=== PATIENT | male | born 1965 | race Caucasian/White ===

== ENCOUNTER 2019-08-08 15:17 | Inpatient (IN) ==
[2019-08-08] MEDS ORDERED: Isovue-370 500 ML BOTTLE IVP ONE (15:40)
[2019-08-08] MEDS ORDERED: Morphine Sulfate 2 MG/ML SYRINGE IVP ONE ×2 (15:43→17:30)
[2019-08-08] MEDS ORDERED: 0.9 % Sodium Chloride 1,000 ML IVC ONE (15:43)
[2019-08-08 16:16] LABS: Hematocrit 39.7 % (37.5-50.1); Hemoglobin 13.3 g/dL (12.9-16.9); Mean Corpuscular HGB Conc 33.5 g/dL (31.6-35.5); Mean Corpuscular Hemoglobin 29.5 pg (28.0-33.3); Mean Platelet Volume 10.5 fL (9.4-12.4); Platelet Count 211 K/mcL (140-400); Red Blood Count 4.51 M/mcL (4.19-5.50); Red Cell Distribution Width 14.1 % (11.5-14.5); White Blood Count 15.8 K/mcL (4.3-11.1)
[2019-08-08 16:35] LABS: Alanine Aminotransferase 76 Units/L (7-52); Albumin 3.4 g/dL (3.5-5.7); Albumin/Globulin Ratio 1.2 (1.1-2.2); Alkaline Phosphatase 136 Units/L (34-104); Aspartate Amino Transferase 58 Units/L (13-39); BUN/Creatinine Ratio 21 (6-26); Bilirubin,Total 1.9 mg/dL (0.3-1.0); Blood Urea Nitrogen 22 mg/dL (6-20); C-Reactive Protein > 300 mg/L (Less than 10); Calcium 9.1 mg/dL (8.6-10.3); Carbon Dioxide 21 mEq/L (23-29); Chloride 102 mEq/L (98-107); Creatine Kinase 1126 Units/L (30-223); Globulin 2.9 g/dL (2.4-3.5); Glucose 138 mg/dL (70-105); Osmolality,Calculated 286 (280-300); Potassium 3.7 mEq/L (3.5-5.1); Sodium 135 mEq/L (136-145); Total Protein 6.3 g/dL (6.4-8.9); eGFR For African Americans > 60 (> 60); eGFR For Non-African Americans > 60 (> 60)
[2019-08-08 16:43] LABS: Lymphocytes # 0.6 K/mcL (0.6-4.6); Monocytes # 1.9 K/mcL (0.0-1.3); Neutrophils # 13.3 K/mcL (1.6-8.9); Platelet Estimate Slight Decrease (Normal)
[2019-08-08] MEDS ORDERED: Naloxone 0.4 MG/ML INJ IVP PRN (18:02)
[2019-08-08] MEDS: 0.9 % Sodium Chloride 1,000 ML IVC SCH ×3 (18:03→23:26)
[2019-08-08] MEDS ORDERED: Piperacillin/Tazobactam 3.375 GM in 0.9 % Sodium Chloride Mini Bag 100 ML IVPB STA (18:16)
[2019-08-08] MEDS: Piperacillin/Tazobactam 3.375 GM in 0.9 % Sodium Chloride Mini Bag 100 ML IVPB SCH (23:27)
[2019-08-09 00:58] LABS: Basophils # 0.1 K/mcL (0.0-0.2); Basophils % 0.7 %; Eosinophils % 0.1 %; Hematocrit 37.2 % (37.5-50.1); Hemoglobin 12.5 g/dL (12.9-16.9); Immature Granulocytes % 0.2 % (0-4); Lymphocytes # 0.4 K/mcL (0.6-4.6); Lymphocytes % 2.2 %; Mean Corpuscular HGB Conc 33.6 g/dL (31.6-35.5); Mean Corpuscular Hemoglobin 29.7 pg (28.0-33.3); Mean Corpuscular Volume 88.4 fL (83.0-100.0); Mean Platelet Volume 10.8 fL (9.4-12.4); Monocytes # 0.8 K/mcL (0.0-1.3); Monocytes % 4.7 %; Neutrophils # 15.4 K/mcL (1.6-8.9); Platelet Count 206 K/mcL (140-400); Red Blood Count 4.21 M/mcL (4.19-5.50); Red Cell Distribution Width 14.3 % (11.5-14.5); Segmented Neutrophils % 92.1 %; White Blood Count 16.7 K/mcL (4.3-11.1)
[2019-08-09 01:17] LABS: BUN/Creatinine Ratio 21 (6-26); Blood Urea Nitrogen 19 mg/dL (6-20); Calcium 8.2 mg/dL (8.6-10.3); Carbon Dioxide 20 mEq/L (23-29); Chloride 104 mEq/L (98-107); Glucose 131 mg/dL (70-105); Magnesium 1.6 mg/dL (1.6-2.6); Osmolality,Calculated 284 (280-300); Phosphorous 3.1 mg/dL (2.7-4.5); Potassium 3.9 mEq/L (3.5-5.1); Sodium 135 mEq/L (136-145); eGFR For African Americans > 60 (> 60); eGFR For Non-African Americans > 60 (> 60)
[2019-08-09 01:42] LABS: Platelet Estimate Normal (Normal)
[2019-08-09] MEDS: Acetaminophen 325 MG TABLET PO PRN (03:46)
[2019-08-09] MEDS: 0.9 % Sodium Chloride 1,000 ML IVC SCH ×3 (03:47→08:10)
[2019-08-09] MEDS ORDERED: *HR* Heparin 5,000 UNIT/ML VIAL SQ SCH (06:00)
[2019-08-09] MEDS: Piperacillin/Tazobactam 3.375 GM in 0.9 % Sodium Chloride Mini Bag 100 ML IVPB SCH ×2 (08:09→19:06)
[2019-08-09] MEDS ORDERED: *HR* Heparin 5,000 UNIT/ML VIAL IVP ONE (09:28)
[2019-08-09] MEDS ORDERED: *HR* Heparin 5,000 UNIT/ML VIAL IVP PRN (09:28)
[2019-08-09 10:00] LABS: Hematocrit 34.5 % (37.5-50.1); Hemoglobin 11.7 g/dL (12.9-16.9); Mean Corpuscular HGB Conc 33.9 g/dL (31.6-35.5); Mean Corpuscular Hemoglobin 29.9 pg (28.0-33.3); Mean Corpuscular Volume 88.2 fL (83.0-100.0); Mean Platelet Volume 10.5 fL (9.4-12.4); Platelet Count 199 K/mcL (140-400); Red Blood Count 3.91 M/mcL (4.19-5.50); Red Cell Distribution Width 14.5 % (11.5-14.5); White Blood Count 16.3 K/mcL (4.3-11.1)
[2019-08-09 10:02] LABS: Heparin anti-factor XA UFH < 0.04 IU/mL (0.30-0.70); INR 1.4; Prothrombin Time 16.2 Seconds (9.4-12.1)
[2019-08-09] MEDS: Apixaban 5 MG TABLET PO SCH ×2 (10:17→10:18)
[2019-08-09] MEDS: Heparin 25,000 UNIT/250 ML D5W 25,000 UNIT/250 ML IV.SOLN IVC SCH (10:38)
[2019-08-09 13:46] LABS: Acinetobacter baumannii by PCR Not Detected (Not Detect); Candida albicans by PCR Not Detected (Not Detect); Candida glabrata by PCR Not Detected (Not Detect); Enterobacter cloacae Cmplx PCR Not Detected (Not Detect); Enterobacteriaceae by PCR Not Detected (Not Detect); Enterococcus by PCR Not Detected (Not Detect); Escherichia coli by PCR Not Detected (Not Detect); Klebsiella oxytoca by PCR Not Detected (Not Detect); Klebsiella pneumoniae by PCR Not Detected (Not Detect); Proteus by PCR Not Detected (Not Detect); Pseudomonas aeruginosa by PCR Not Detected (Not Detect); Serratia marcescens by PCR Not Detected (Not Detect); Staphylococcus aureus by PCR DETECTED (Not Detect); Streptococcus agalactiae(B)PCR Not Detected (Not Detect); Streptococcus by PCR Not Detected (Not Detect); Streptococcus pneumoniae PCR Not Detected (Not Detect); Streptococcus pyogenes (A) PCR Not Detected (Not Detect); mecA Methicillin-Resist Gene DETECTED (Not Detect)
[2019-08-09 13:47] LABS: Candida krusei by PCR Not Detected (Not Detect); Candida parapsilosis by PCR Not Detected (Not Detect); Candida tropicalis by PCR Not Detected (Not Detect)
[2019-08-09] MEDS ORDERED: *HR* Warfarin 5 MG TABLET PO ONE (18:00)
[2019-08-09] MEDS ORDERED: Warfarin perPT PO SCH (18:00)
[2019-08-09] MEDS: *HR* Heparin 5,000 UNIT/ML VIAL IVP PRN (18:21)
[2019-08-09] MEDS ORDERED: Warfarin perPT PO PRN (19:45)
[2019-08-10] MEDS: Piperacillin/Tazobactam 3.375 GM in 0.9 % Sodium Chloride Mini Bag 100 ML IVPB SCH ×3 (00:13→17:01)
[2019-08-10 02:13] LABS: Hematocrit 31.7 % (37.5-50.1); Hemoglobin 10.4 g/dL (12.9-16.9)
[2019-08-10 02:21] LABS: INR 1.3
[2019-08-10 02:30] LABS: BUN/Creatinine Ratio 23 (6-26); Blood Urea Nitrogen 19 mg/dL (6-20); Calcium 7.8 mg/dL (8.6-10.3); Carbon Dioxide 20 mEq/L (23-29); Chloride 105 mEq/L (98-107); Glucose 95 mg/dL (70-105); Magnesium 1.9 mg/dL (1.6-2.6); Osmolality,Calculated 284 (280-300); Phosphorous 2.7 mg/dL (2.7-4.5); Potassium 3.3 mEq/L (3.5-5.1); Sodium 136 mEq/L (136-145); eGFR For African Americans > 60 (> 60); eGFR For Non-African Americans > 60 (> 60)
[2019-08-10] MEDS: *HR* Heparin 5,000 UNIT/ML VIAL IVP PRN ×3 (03:32→17:41)
[2019-08-10] MEDS: Heparin 25,000 UNIT/250 ML D5W 25,000 UNIT/250 ML IV.SOLN IVC SCH ×2 (04:06→17:06)
[2019-08-10 05:39] LABS: BUN/Creatinine Ratio 23 (6-26); Blood Urea Nitrogen 19 mg/dL (6-20); eGFR For African Americans > 60 (> 60); eGFR For Non-African Americans > 60 (> 60)
[2019-08-10] MEDS ORDERED: Isovue-370 500 ML BOTTLE IVP ONE (10:20)
[2019-08-10] MEDS ORDERED: 0.9 % Sodium Chloride 1,000 ML IVC SCH (10:45)
[2019-08-10] MEDS: 0.9 % Sodium Chloride 1,000 ML IVC SCH ×3 (14:48→14:50)
[2019-08-10] MEDS: Acetaminophen 325 MG TABLET PO PRN (17:18)
[2019-08-10] MEDS ORDERED: *HR* Warfarin 5 MG TABLET PO ONE (18:00)
[2019-08-10] MEDS ORDERED: Acetaminophen/Aspirin/Caffeine TABLET PO ONE (21:32)
[2019-08-11] MEDS: Piperacillin/Tazobactam 3.375 GM in 0.9 % Sodium Chloride Mini Bag 100 ML IVPB SCH ×3 (00:09→16:21)
[2019-08-11] MEDS: Albuterol 2.5 MG/3 ML NEBULIZER IH PRN (00:24)
[2019-08-11] MEDS: *HR* Heparin 5,000 UNIT/ML VIAL IVP PRN ×3 (01:56→17:50)
[2019-08-11 02:21] LABS: Hematocrit 31.5 % (37.5-50.1); Hemoglobin 10.5 g/dL (12.9-16.9); Mean Corpuscular HGB Conc 33.3 g/dL (31.6-35.5); Mean Corpuscular Hemoglobin 29.4 pg (28.0-33.3); Mean Corpuscular Volume 88.2 fL (83.0-100.0); Mean Platelet Volume 10.5 fL (9.4-12.4); Platelet Count 231 K/mcL (140-400); Red Blood Count 3.57 M/mcL (4.19-5.50); White Blood Count 24.4 K/mcL (4.3-11.1)
[2019-08-11 02:40] LABS: BUN/Creatinine Ratio 22 (6-26); Blood Urea Nitrogen 18 mg/dL (6-20); Calcium 7.9 mg/dL (8.6-10.3); Carbon Dioxide 22 mEq/L (23-29); Chloride 105 mEq/L (98-107); Glucose 87 mg/dL (70-105); Magnesium 2.2 mg/dL (1.6-2.6); Osmolality,Calculated 283 (280-300); Phosphorous 3.1 mg/dL (2.7-4.5); Potassium 3.3 mEq/L (3.5-5.1); Sodium 136 mEq/L (136-145); eGFR For African Americans > 60 (> 60); eGFR For Non-African Americans > 60 (> 60)
[2019-08-11 03:06] LABS: Eosinophils # 0.5 K/mcL (0.0-0.6); Monocytes # 1.5 K/mcL (0.0-1.3); Neutrophils # 21.5 K/mcL (1.6-8.9); Platelet Estimate Normal (Normal); Toxic Vacuolation Present (Not Present)
[2019-08-11] MEDS ORDERED: Morphine Sulfate 2 MG/ML SYRINGE IVP ONE (06:08)
[2019-08-11] MEDS: Heparin 25,000 UNIT/250 ML D5W 25,000 UNIT/250 ML IV.SOLN IVC SCH ×2 (06:46→18:26)
[2019-08-11 08:49] LABS: Heparin anti-factor XA UFH 0.13 IU/mL (0.30-0.70)
[2019-08-11 08:50] LABS: INR 1.3; Prothrombin Time 14.6 Seconds (9.4-12.1)
[2019-08-11] MEDS: Acetaminophen 325 MG TABLET PO PRN ×2 (10:56→18:08)
[2019-08-11] MEDS ORDERED: *HR* Warfarin 7.5 MG TABLET PO ONE (18:00)
[2019-08-11] MEDS ORDERED: *HR* HYDROcodone/Acet 5/325 mg TABLET PO ONE (19:38)
[2019-08-12] MEDS: Piperacillin/Tazobactam 3.375 GM in 0.9 % Sodium Chloride Mini Bag 100 ML IVPB SCH ×3 (00:14→17:30)
[2019-08-12] MEDS ORDERED: *HR* OxyCODONE Immed Rel 5 MG TABLET PO ONE ×2 (02:17→21:59)
[2019-08-12 02:20] LABS: Basophils # 0.1 K/mcL (0.0-0.2); Basophils % 0.3 %; Eosinophils # 0.1 K/mcL (0.0-0.6); Eosinophils % 0.6 %; Hemoglobin 11.3 g/dL (12.9-16.9); Lymphocytes # 0.9 K/mcL (0.6-4.6); Lymphocytes % 4.6 %; Mean Corpuscular HGB Conc 34.2 g/dL (31.6-35.5); Mean Corpuscular Hemoglobin 29.9 pg (28.0-33.3); Mean Corpuscular Volume 87.3 fL (83.0-100.0); Mean Platelet Volume 9.6 fL (9.4-12.4); Monocytes # 1.2 K/mcL (0.0-1.3); Monocytes % 6.2 %; Platelet Count 259 K/mcL (140-400); Red Blood Count 3.78 M/mcL (4.19-5.50); Segmented Neutrophils % 86.3 %; White Blood Count 18.5 K/mcL (4.3-11.1)
[2019-08-12 02:24] LABS: INR 1.5; Prothrombin Time 16.6 Seconds (9.4-12.1)
[2019-08-12 02:39] LABS: BUN/Creatinine Ratio 21 (6-26); Blood Urea Nitrogen 16 mg/dL (6-20); Calcium 7.8 mg/dL (8.6-10.3); Carbon Dioxide 25 mEq/L (23-29); Chloride 105 mEq/L (98-107); Glucose 99 mg/dL (70-105); Magnesium 2.1 mg/dL (1.6-2.6); Osmolality,Calculated 285 (280-300); Phosphorous 3.4 mg/dL (2.7-4.5); Potassium 3.5 mEq/L (3.5-5.1); Sodium 137 mEq/L (136-145); eGFR For African Americans > 60 (> 60); eGFR For Non-African Americans > 60 (> 60)
[2019-08-12] MEDS: Acetaminophen 325 MG TABLET PO PRN ×3 (03:49→16:46)
[2019-08-12] MEDS: Heparin 25,000 UNIT/250 ML D5W 25,000 UNIT/250 ML IV.SOLN IVC SCH ×2 (05:03→13:58)
[2019-08-12] MEDS: *HR* Heparin 5,000 UNIT/ML VIAL IVP PRN (06:56)
[2019-08-12] MEDS ORDERED: Lidocaine -MPF 1% 5 ML AMPUL INFILT ONE (13:47)
[2019-08-12] MEDS ORDERED: *HR* Warfarin 7.5 MG TABLET PO ONE (18:00)
[2019-08-12] MEDS ORDERED: Isovue-370 500 ML BOTTLE IVP ONE (20:45)
[2019-08-12] MEDS: Albuterol 2.5 MG/3 ML NEBULIZER IH PRN (22:01)
[2019-08-13] MEDS: Piperacillin/Tazobactam 3.375 GM in 0.9 % Sodium Chloride Mini Bag 100 ML IVPB SCH ×3 (00:01→17:08)
[2019-08-13] MEDS: Acetaminophen 325 MG TABLET PO PRN (00:03)
[2019-08-13] MEDS: Heparin 25,000 UNIT/250 ML D5W 25,000 UNIT/250 ML IV.SOLN IVC SCH (00:29)
[2019-08-13 05:48] LABS: Basophils # 0.1 K/mcL (0.0-0.2); Basophils % 0.3 %; Eosinophils # 0.1 K/mcL (0.0-0.6); Eosinophils % 0.7 %; Hematocrit 32.2 % (37.5-50.1); Hemoglobin 10.8 g/dL (12.9-16.9); Immature Granulocytes % 2.5 % (0-4); Lymphocytes # 0.9 K/mcL (0.6-4.6); Lymphocytes % 4.3 %; Mean Corpuscular HGB Conc 33.5 g/dL (31.6-35.5); Mean Corpuscular Volume 86.3 fL (83.0-100.0); Mean Platelet Volume 9.5 fL (9.4-12.4); Monocytes # 0.9 K/mcL (0.0-1.3); Monocytes % 4.4 %; Neutrophils # 17.4 K/mcL (1.6-8.9); Platelet Count 328 K/mcL (140-400); Red Blood Count 3.73 M/mcL (4.19-5.50); Red Cell Distribution Width 15.3 % (11.5-14.5); Segmented Neutrophils % 87.8 %; White Blood Count 19.8 K/mcL (4.3-11.1)
[2019-08-13 05:50] LABS: INR 2.2; Prothrombin Time 25.5 Seconds (9.4-12.1)
[2019-08-13] MEDS ORDERED: *HR* OxyCODONE Immed Rel 5 MG TABLET PO ONE (05:59)
[2019-08-13 06:11] LABS: BUN/Creatinine Ratio 19 (6-26); Blood Urea Nitrogen 14 mg/dL (6-20); Calcium 7.6 mg/dL (8.6-10.3); Carbon Dioxide 24 mEq/L (23-29); Chloride 106 mEq/L (98-107); Glucose 97 mg/dL (70-105); Osmolality,Calculated 288 (280-300); Potassium 3.5 mEq/L (3.5-5.1); Sodium 139 mEq/L (136-145); eGFR For African Americans > 60 (> 60); eGFR For Non-African Americans > 60 (> 60)
[2019-08-13] MEDS: polyethylene glycoL 3350 17 GM POWD.PACK PO SCH (11:11)
[2019-08-13] MEDS: Sennosides/Docusate Sodium TABLET PO SCH ×2 (11:11→20:47)
[2019-08-13] MEDS ORDERED: *HR* OxyCODONE Oral Soln 5 MG/5 ML UD.LIQ PO ONE (16:22)
[2019-08-14] MEDS: Piperacillin/Tazobactam 3.375 GM in 0.9 % Sodium Chloride Mini Bag 100 ML IVPB SCH ×3 (00:18→16:17)
[2019-08-14 05:20] LABS: Basophils % 0.2 %; Eosinophils # 0.3 K/mcL (0.0-0.6); Eosinophils % 1.6 %; Hematocrit 31.7 % (37.5-50.1); Hemoglobin 10.6 g/dL (12.9-16.9); Immature Granulocytes % 1.5 % (0-4); Lymphocytes # 0.8 K/mcL (0.6-4.6); Lymphocytes % 4.1 %; Mean Corpuscular HGB Conc 33.4 g/dL (31.6-35.5); Mean Corpuscular Hemoglobin 29.7 pg (28.0-33.3); Mean Corpuscular Volume 88.8 fL (83.0-100.0); Mean Platelet Volume 9.6 fL (9.4-12.4); Monocytes # 1.1 K/mcL (0.0-1.3); Monocytes % 5.7 %; Neutrophils # 16.2 K/mcL (1.6-8.9); Platelet Count 348 K/mcL (140-400); Red Blood Count 3.57 M/mcL (4.19-5.50); Red Cell Distribution Width 15.1 % (11.5-14.5); Segmented Neutrophils % 86.9 %; White Blood Count 18.6 K/mcL (4.3-11.1)
[2019-08-14 05:24] LABS: INR 1.9; Prothrombin Time 21.7 Seconds (9.4-12.1)
[2019-08-14 05:38] LABS: BUN/Creatinine Ratio 22 (6-26); Blood Urea Nitrogen 14 mg/dL (6-20); Calcium 7.8 mg/dL (8.6-10.3); Carbon Dioxide 23 mEq/L (23-29); Chloride 105 mEq/L (98-107); Glucose 95 mg/dL (70-105); Osmolality,Calculated 282 (280-300); Phosphorous 3.4 mg/dL (2.7-4.5); Potassium 3.7 mEq/L (3.5-5.1); Sodium 136 mEq/L (136-145); eGFR For African Americans > 60 (> 60); eGFR For Non-African Americans > 60 (> 60)
[2019-08-14] MEDS: polyethylene glycoL 3350 17 GM POWD.PACK PO SCH (09:11)
[2019-08-14] MEDS: Sennosides/Docusate Sodium TABLET PO SCH ×2 (09:11→20:54)
[2019-08-14] MEDS ORDERED: Furosemide 20 MG/2 ML VIAL IVP ONE (11:19)
[2019-08-14] MEDS: Budesonide/Formoterol 160/4.5 1 PUFF INH IH SCH ×2 (11:56→21:42)
[2019-08-14] MEDS ORDERED: *HR* Warfarin 7.5 MG TABLET PO ONE (18:00)
[2019-08-14 18:23] LABS: Immature Reticulocyte % 5.1 % (11.0-38.0); Retculocyte # 0.02 M/mcL (0.05-0.10); Reticulocyte % 0.5 % (1.6-2.8)
[2019-08-14 18:24] LABS: % Iron Saturation 46 % (20-55); Iron 83 mcg/dL (65-175); Lactate Dehydrogenase 285 Units/L (140-271); Transferrin 129 mg/dL (203-362)
[2019-08-14 18:49] LABS: Folate 8.1 ng/mL (3.0-16.0)
[2019-08-14 18:52] LABS: Vitamin B12 > 1500 pg/mL (250-1100)
[2019-08-14] MEDS: Acetaminophen 325 MG TABLET PO PRN (20:54)
[2019-08-15] MEDS: Piperacillin/Tazobactam 3.375 GM in 0.9 % Sodium Chloride Mini Bag 100 ML IVPB SCH ×3 (00:50→15:53)
[2019-08-15 06:24] LABS: INR 2.2; Prothrombin Time 24.9 Seconds (9.4-12.1)
[2019-08-15 06:26] LABS: Basophils % 0.2 %; Eosinophils # 0.1 K/mcL (0.0-0.6); Eosinophils % 0.5 %; Hematocrit 32.6 % (37.5-50.1); Hemoglobin 10.7 g/dL (12.9-16.9); Immature Granulocytes % 1.3 % (0-4); Lymphocytes # 0.6 K/mcL (0.6-4.6); Lymphocytes % 2.9 %; Mean Corpuscular HGB Conc 32.8 g/dL (31.6-35.5); Mean Corpuscular Hemoglobin 28.6 pg (28.0-33.3); Mean Corpuscular Volume 87.2 fL (83.0-100.0); Mean Platelet Volume 9.7 fL (9.4-12.4); Monocytes # 0.9 K/mcL (0.0-1.3); Monocytes % 4.9 %; Neutrophils # 17.2 K/mcL (1.6-8.9); Platelet Count 442 K/mcL (140-400); Red Blood Count 3.74 M/mcL (4.19-5.50); Red Cell Distribution Width 14.7 % (11.5-14.5); Segmented Neutrophils % 90.2 %
[2019-08-15 06:42] LABS: BUN/Creatinine Ratio 25 (6-26); Blood Urea Nitrogen 15 mg/dL (6-20); Calcium 7.8 mg/dL (8.6-10.3); Carbon Dioxide 21 mEq/L (23-29); Chloride 105 mEq/L (98-107); Glucose 103 mg/dL (70-105); Osmolality,Calculated 279 (280-300); Potassium 3.9 mEq/L (3.5-5.1); Sodium 134 mEq/L (136-145); eGFR For African Americans > 60 (> 60); eGFR For Non-African Americans > 60 (> 60)
[2019-08-15] MEDS: Sennosides/Docusate Sodium TABLET PO SCH ×3 (08:57→21:53)
[2019-08-15] MEDS: polyethylene glycoL 3350 17 GM POWD.PACK PO SCH ×2 (08:58→09:24)
[2019-08-15] MEDS: Budesonide/Formoterol 160/4.5 1 PUFF INH IH SCH ×2 (10:40→21:43)
[2019-08-15] MEDS ORDERED: Isovue-370 500 ML BOTTLE IVP ONE ×3 (11:18→12:00)
[2019-08-15] MEDS ORDERED: *HR* Acetaminophen w/Cod 300-30 mg 1 TAB TABLET PO PRN (15:49)
[2019-08-15] MEDS ORDERED: *HR* Warfarin 7.5 MG TABLET PO ONE (18:00)
[2019-08-15] MEDS ORDERED: *HR* Heparin 5,000 UNIT/ML VIAL IVP ONE (20:33)
[2019-08-15] MEDS ORDERED: *HR* Heparin 5,000 UNIT/ML VIAL IVP PRN ×2 (20:33)
[2019-08-15] MEDS ORDERED: Heparin 25,000 UNIT/250 ML D5W 25,000 UNIT/250 ML IV.SOLN IVC SCH (20:45)
[2019-08-15 22:55] LABS: Hematocrit 30.9 % (37.5-50.1); Hemoglobin 10.2 g/dL (12.9-16.9); Mean Corpuscular Volume 87.8 fL (83.0-100.0); Mean Platelet Volume 9.5 fL (9.4-12.4); Platelet Count 443 K/mcL (140-400); Red Blood Count 3.52 M/mcL (4.19-5.50); Red Cell Distribution Width 14.9 % (11.5-14.5); White Blood Count 18.5 K/mcL (4.3-11.1)
[2019-08-15 23:04] LABS: Heparin anti-factor XA UFH < 0.04 IU/mL (0.30-0.70)
[2019-08-15 23:28] LABS: INR 2.4; Prothrombin Time 27.2 Seconds (9.4-12.1)
[2019-08-16] MEDS: Piperacillin/Tazobactam 3.375 GM in 0.9 % Sodium Chloride Mini Bag 100 ML IVPB SCH ×4 (00:23→23:22)
[2019-08-16 03:58] LABS: Basophils # 0.1 K/mcL (0.0-0.2); Basophils % 0.3 %; Eosinophils # 0.2 K/mcL (0.0-0.6); Eosinophils % 1.3 %; Hematocrit 30.9 % (37.5-50.1); Hemoglobin 10.3 g/dL (12.9-16.9); Immature Granulocytes % 1.1 % (0-4); Lymphocytes # 0.6 K/mcL (0.6-4.6); Lymphocytes % 3.6 %; Mean Corpuscular HGB Conc 33.3 g/dL (31.6-35.5); Mean Corpuscular Hemoglobin 29.7 pg (28.0-33.3); Mean Platelet Volume 9.6 fL (9.4-12.4); Monocytes % 5.8 %; Neutrophils # 14.4 K/mcL (1.6-8.9); Platelet Count 464 K/mcL (140-400); Red Blood Count 3.47 M/mcL (4.19-5.50); Segmented Neutrophils % 87.9 %; White Blood Count 16.4 K/mcL (4.3-11.1)
[2019-08-16 04:07] LABS: INR 2.3; Prothrombin Time 26.2 Seconds (9.4-12.1)
[2019-08-16 04:10] LABS: Activated Partial Thrombo Time 35.3 Seconds (26.0-36.0)
[2019-08-16 04:17] LABS: BUN/Creatinine Ratio 25 (6-26); Blood Urea Nitrogen 15 mg/dL (6-20); Calcium 7.6 mg/dL (8.6-10.3); Carbon Dioxide 21 mEq/L (23-29); Chloride 104 mEq/L (98-107); Glucose 96 mg/dL (70-105); Osmolality,Calculated 277 (280-300); Sodium 133 mEq/L (136-145); eGFR For African Americans > 60 (> 60); eGFR For Non-African Americans > 60 (> 60)
[2019-08-16] MEDS: Budesonide/Formoterol 160/4.5 1 PUFF INH IH SCH ×2 (08:10→22:09)
[2019-08-16] MEDS: Sennosides/Docusate Sodium TABLET PO SCH ×2 (08:46→19:40)
[2019-08-16] MEDS: polyethylene glycoL 3350 17 GM POWD.PACK PO SCH (08:46)
[2019-08-16] MEDS: Acetaminophen 325 MG TABLET PO PRN (17:14)
[2019-08-16] MEDS ORDERED: Warfarin perPT PO PRN (18:00)
[2019-08-16] MEDS: *HR* Acetaminophen w/Cod 300-30 mg 1 TAB TABLET PO PRN (18:10)
[2019-08-16] MEDS ORDERED: Melatonin 3 MG TABLET PO ONE (21:56)
[2019-08-16 22:05] LABS: Kappa Qnt Free Light Chains 46.75 mg/L (3.30-19.40); Lambda Qnt Free Light Chains 36.53 mg/L (5.71-26.30)
[2019-08-17 02:39] LABS: Basophils # 0.1 K/mcL (0.0-0.2); Basophils % 0.5 %; Eosinophils # 0.3 K/mcL (0.0-0.6); Eosinophils % 2.6 %; Hematocrit 30.8 % (37.5-50.1); Hemoglobin 10.1 g/dL (12.9-16.9); Immature Granulocytes % 0.8 % (0-4); Lymphocytes # 0.7 K/mcL (0.6-4.6); Lymphocytes % 5.7 %; Mean Corpuscular HGB Conc 32.8 g/dL (31.6-35.5); Mean Corpuscular Hemoglobin 29.3 pg (28.0-33.3); Mean Corpuscular Volume 89.3 fL (83.0-100.0); Mean Platelet Volume 9.7 fL (9.4-12.4); Monocytes # 0.9 K/mcL (0.0-1.3); Monocytes % 6.8 %; Neutrophils # 10.9 K/mcL (1.6-8.9); Platelet Count 552 K/mcL (140-400); Red Blood Count 3.45 M/mcL (4.19-5.50); Segmented Neutrophils % 83.6 %
[2019-08-17 02:40] LABS: INR 2.2; Prothrombin Time 25.5 Seconds (9.4-12.1)
[2019-08-17 02:42] LABS: Activated Partial Thrombo Time 35.7 Seconds (26.0-36.0)
[2019-08-17 02:51] LABS: Lactate Dehydrogenase 164 Units/L (140-271); Total Protein 5.6 g/dL (6.4-8.9)
[2019-08-17 02:54] LABS: BUN/Creatinine Ratio 25 (6-26); Blood Urea Nitrogen 15 mg/dL (6-20); Calcium 7.8 mg/dL (8.6-10.3); Carbon Dioxide 21 mEq/L (23-29); Chloride 106 mEq/L (98-107); Glucose 98 mg/dL (70-105); Osmolality,Calculated 281 (280-300); Sodium 135 mEq/L (136-145); eGFR For African Americans > 60 (> 60); eGFR For Non-African Americans > 60 (> 60)
[2019-08-17] MEDS: polyethylene glycoL 3350 17 GM POWD.PACK PO SCH (07:48)
[2019-08-17] MEDS: Sennosides/Docusate Sodium TABLET PO SCH ×2 (07:48→21:55)
[2019-08-17] MEDS: Piperacillin/Tazobactam 3.375 GM in 0.9 % Sodium Chloride Mini Bag 100 ML IVPB SCH ×3 (08:01→23:59)
[2019-08-17] MEDS ORDERED: *HR* Phytonadione 5 MG TABLET PO ONE (09:24)
[2019-08-17] MEDS: Budesonide/Formoterol 160/4.5 1 PUFF INH IH SCH ×2 (09:58→20:16)
[2019-08-17] MEDS ORDERED: *HR* Heparin 5,000 UNIT/ML VIAL IVP PRN (13:43)
[2019-08-17] MEDS ORDERED: Heparin 25,000 UNIT/250 ML D5W 25,000 UNIT/250 ML IV.SOLN IVC SCH (13:45)
[2019-08-17 16:49] LABS: Hematocrit 30.8 % (37.5-50.1); Hemoglobin 10.1 g/dL (12.9-16.9); Mean Corpuscular HGB Conc 32.8 g/dL (31.6-35.5); Mean Corpuscular Hemoglobin 29.1 pg (28.0-33.3); Mean Corpuscular Volume 88.8 fL (83.0-100.0); Mean Platelet Volume 9.4 fL (9.4-12.4); Platelet Count 616 K/mcL (140-400); Red Blood Count 3.47 M/mcL (4.19-5.50); Red Cell Distribution Width 14.8 % (11.5-14.5); White Blood Count 14.8 K/mcL (4.3-11.1)
[2019-08-17] MEDS ORDERED: Warfarin perPT PO PRN (18:00)
[2019-08-17 18:01] LABS: INR 1.9; Prothrombin Time 21.9 Seconds (9.4-12.1)
[2019-08-17 18:04] LABS: Heparin anti-factor XA UFH < 0.04 IU/mL (0.30-0.70)
[2019-08-17] MEDS: *HR* Acetaminophen w/Cod 300-30 mg 1 TAB TABLET PO PRN (23:49)
[2019-08-18] MEDS: Heparin 25,000 UNIT/250 ML D5W 25,000 UNIT/250 ML IV.SOLN IVC SCH ×2 (01:45→23:18)
[2019-08-18] MEDS: *HR* Heparin 5,000 UNIT/ML VIAL IVP PRN ×2 (02:27→23:18)
[2019-08-18 02:56] LABS: Basophils # 0.1 K/mcL (0.0-0.2); Basophils % 0.6 %; Eosinophils # 0.2 K/mcL (0.0-0.6); Hematocrit 29.8 % (37.5-50.1); Hemoglobin 9.8 g/dL (12.9-16.9); Immature Granulocytes % 0.9 % (0-4); Lymphocytes # 1.1 K/mcL (0.6-4.6); Lymphocytes % 8.8 %; Mean Corpuscular HGB Conc 32.9 g/dL (31.6-35.5); Mean Corpuscular Hemoglobin 29.1 pg (28.0-33.3); Mean Corpuscular Volume 88.4 fL (83.0-100.0); Mean Platelet Volume 9.4 fL (9.4-12.4); Monocytes # 0.9 K/mcL (0.0-1.3); Monocytes % 7.3 %; Neutrophils # 9.6 K/mcL (1.6-8.9); Platelet Count 637 K/mcL (140-400); Red Blood Count 3.37 M/mcL (4.19-5.50); Red Cell Distribution Width 14.6 % (11.5-14.5); Segmented Neutrophils % 80.4 %
[2019-08-18 03:16] LABS: BUN/Creatinine Ratio 22 (6-26); Blood Urea Nitrogen 14 mg/dL (6-20); Calcium 8.1 mg/dL (8.6-10.3); Carbon Dioxide 21 mEq/L (23-29); Chloride 106 mEq/L (98-107); Glucose 97 mg/dL (70-105); Osmolality,Calculated 280 (280-300); Sodium 135 mEq/L (136-145); eGFR For African Americans > 60 (> 60); eGFR For Non-African Americans > 60 (> 60)
[2019-08-18] MEDS: Piperacillin/Tazobactam 3.375 GM in 0.9 % Sodium Chloride Mini Bag 100 ML IVPB SCH (08:01)
[2019-08-18] MEDS: Budesonide/Formoterol 160/4.5 1 PUFF INH IH SCH ×2 (08:34→20:41)
[2019-08-18 10:03] LABS: Beta Globulin (PEP) 0.69 g/dL (0.48-1.10)
[2019-08-18] MEDS: Sennosides/Docusate Sodium TABLET PO SCH ×2 (10:30→21:06)
[2019-08-18] MEDS: polyethylene glycoL 3350 17 GM POWD.PACK PO SCH (10:30)
[2019-08-18 11:59] LABS: IFE Reflexed IFE Done; Immunoglobulin A 199 mg/dL (68-408); Immunoglobulin G 821 mg/dL (768-1632); Immunoglobulin M 94 mg/dL (35-263)
[2019-08-18 12:12] LABS: INR 1.3; Prothrombin Time 14.9 Seconds (9.4-12.1)
[2019-08-18 12:13] LABS: Lactate Dehydrogenase 189 Units/L (140-271); Total Protein 5.8 g/dL (6.4-8.9)
[2019-08-18 12:15] LABS: Activated Partial Thrombo Time 30.4 Seconds (26.0-36.0)
[2019-08-18 16:10] LABS: Appearance of Pleural Fl Hazy (Clear); RBC,Pleural Fluid 0.033 M/mcL
[2019-08-18 16:11] LABS: Basophils,Pleural Fluid 0 %; Eosinophils,Pleural Fluid 2 %; Lymphocytes,Pleural Fluid 70 %; Monocytes,Pleural Fluid 6 %
[2019-08-18] MEDS ORDERED: *HR* Warfarin 7.5 MG TABLET PO ONE ×2 (18:00)
[2019-08-18] MEDS ORDERED: Warfarin perPT PO PRN (18:00)
[2019-08-18] MEDS: *HR* Acetaminophen w/Cod 300-30 mg 1 TAB TABLET PO PRN (21:42)
[2019-08-19 06:17] LABS: Basophils # 0.1 K/mcL (0.0-0.2); Basophils % 0.7 %; Eosinophils # 0.3 K/mcL (0.0-0.6); Eosinophils % 2.3 %; Hemoglobin 10.2 g/dL (12.9-16.9); Immature Granulocytes % 0.8 % (0-4); Lymphocytes # 1.1 K/mcL (0.6-4.6); Lymphocytes % 9.8 %; Mean Corpuscular HGB Conc 32.9 g/dL (31.6-35.5); Mean Corpuscular Hemoglobin 29.6 pg (28.0-33.3); Mean Corpuscular Volume 89.9 fL (83.0-100.0); Mean Platelet Volume 9.1 fL (9.4-12.4); Monocytes # 0.8 K/mcL (0.0-1.3); Monocytes % 7.4 %; Neutrophils # 8.6 K/mcL (1.6-8.9); Platelet Count 712 K/mcL (140-400); Red Blood Count 3.45 M/mcL (4.19-5.50); Red Cell Distribution Width 14.6 % (11.5-14.5); White Blood Count 10.9 K/mcL (4.3-11.1)
[2019-08-19 06:33] LABS: Heparin anti-factor XA UFH 0.31 IU/mL (0.30-0.70)
[2019-08-19 06:34] LABS: INR 1.3
[2019-08-19 06:37] LABS: BUN/Creatinine Ratio 26 (6-26); Blood Urea Nitrogen 16 mg/dL (6-20); Calcium 8.4 mg/dL (8.6-10.3); Carbon Dioxide 24 mEq/L (23-29); Chloride 105 mEq/L (98-107); Glucose 103 mg/dL (70-105); Osmolality,Calculated 281 (280-300); Potassium 4.2 mEq/L (3.5-5.1); Sodium 135 mEq/L (136-145); eGFR For African Americans > 60 (> 60); eGFR For Non-African Americans > 60 (> 60)
[2019-08-19] MEDS: Budesonide/Formoterol 160/4.5 1 PUFF INH IH SCH ×2 (08:03→20:16)
[2019-08-19] MEDS: polyethylene glycoL 3350 17 GM POWD.PACK PO SCH (08:47)
[2019-08-19] MEDS: Sennosides/Docusate Sodium TABLET PO SCH ×2 (10:02→21:10)
[2019-08-19] MEDS: *HR* Heparin 5,000 UNIT/ML VIAL IVP PRN (13:10)
[2019-08-19] MEDS: Heparin 25,000 UNIT/250 ML D5W 25,000 UNIT/250 ML IV.SOLN IVC SCH (13:10)
[2019-08-19] MEDS ORDERED: *HR* Warfarin 7.5 MG TABLET PO ONE (18:00)
[2019-08-19] MEDS: *HR* Acetaminophen w/Cod 300-30 mg 1 TAB TABLET PO PRN (22:12)
[2019-08-20 00:51] LABS: Basophils # 0.1 K/mcL (0.0-0.2); Basophils % 0.7 %; Eosinophils # 0.2 K/mcL (0.0-0.6); Eosinophils % 1.7 %; Hematocrit 29.3 % (37.5-50.1); Hemoglobin 9.6 g/dL (12.9-16.9); Lymphocytes # 1.3 K/mcL (0.6-4.6); Lymphocytes % 11.1 %; Mean Corpuscular HGB Conc 32.8 g/dL (31.6-35.5); Mean Corpuscular Hemoglobin 29.5 pg (28.0-33.3); Mean Corpuscular Volume 90.2 fL (83.0-100.0); Mean Platelet Volume 9.2 fL (9.4-12.4); Monocytes # 0.8 K/mcL (0.0-1.3); Platelet Count 671 K/mcL (140-400); Red Blood Count 3.25 M/mcL (4.19-5.50); Red Cell Distribution Width 14.5 % (11.5-14.5); Segmented Neutrophils % 78.5 %; White Blood Count 11.5 K/mcL (4.3-11.1)
[2019-08-20 00:56] LABS: INR 1.3
[2019-08-20 01:08] LABS: BUN/Creatinine Ratio 27 (6-26); Blood Urea Nitrogen 20 mg/dL (6-20); Calcium 8.4 mg/dL (8.6-10.3); Carbon Dioxide 22 mEq/L (23-29); Chloride 104 mEq/L (98-107); Glucose 108 mg/dL (70-105); Osmolality,Calculated 281 (280-300); Potassium 4.2 mEq/L (3.5-5.1); Sodium 134 mEq/L (136-145); eGFR For African Americans > 60 (> 60); eGFR For Non-African Americans > 60 (> 60)
[2019-08-20] MEDS: Heparin 25,000 UNIT/250 ML D5W 25,000 UNIT/250 ML IV.SOLN IVC SCH ×2 (01:45→15:35)
[2019-08-20] MEDS: *HR* Heparin 5,000 UNIT/ML VIAL IVP PRN ×3 (01:51→20:49)
[2019-08-20] MEDS: Budesonide/Formoterol 160/4.5 1 PUFF INH IH SCH ×2 (07:55→19:52)
[2019-08-20] MEDS: polyethylene glycoL 3350 17 GM POWD.PACK PO SCH (08:06)
[2019-08-20] MEDS: Sennosides/Docusate Sodium TABLET PO SCH ×2 (08:06→19:39)
[2019-08-20 10:59] LABS: Total Protein,Pleural Fluid 3.1 g/dL
[2019-08-20] MEDS ORDERED: *HR* Warfarin 10 MG TABLET PO ONE (18:00)
[2019-08-20] MEDS: *HR* Acetaminophen w/Cod 300-30 mg 1 TAB TABLET PO PRN (20:53)
[2019-08-21] MEDS: Heparin 25,000 UNIT/250 ML D5W 25,000 UNIT/250 ML IV.SOLN IVC SCH ×4 (02:06→20:37)
[2019-08-21 03:10] LABS: Heparin anti-factor XA UFH 0.37 IU/mL (0.30-0.70); INR 1.6; Prothrombin Time 18.2 Seconds (9.4-12.1)
[2019-08-21] MEDS: Sennosides/Docusate Sodium TABLET PO SCH ×2 (07:46→20:36)
[2019-08-21] MEDS: polyethylene glycoL 3350 17 GM POWD.PACK PO SCH (07:46)
[2019-08-21] MEDS: Budesonide/Formoterol 160/4.5 1 PUFF INH IH SCH ×2 (10:58→22:01)
[2019-08-21] MEDS ORDERED: *HR* Warfarin 10 MG TABLET PO ONE (18:00)
[2019-08-21] MEDS ORDERED: *HR* Warfarin 7.5 MG TABLET PO ONE (18:00)
[2019-08-21] MEDS: *HR* Acetaminophen w/Cod 300-30 mg 1 TAB TABLET PO PRN (22:19)
[2019-08-22] MEDS: Heparin 25,000 UNIT/250 ML D5W 25,000 UNIT/250 ML IV.SOLN IVC SCH (06:08)
[2019-08-22 06:27] LABS: INR 2.3; Prothrombin Time 26.5 Seconds (9.4-12.1)
[2019-08-22] MEDS: polyethylene glycoL 3350 17 GM POWD.PACK PO SCH (08:14)
[2019-08-22] MEDS: Sennosides/Docusate Sodium TABLET PO SCH ×2 (08:14→20:12)
[2019-08-22] MEDS: Budesonide/Formoterol 160/4.5 1 PUFF INH IH SCH ×2 (10:05→21:27)
[2019-08-22] MEDS: Acetaminophen 325 MG TABLET PO PRN (15:56)
[2019-08-22] MEDS ORDERED: *HR* Warfarin 7.5 MG TABLET PO ONE (18:00)
[2019-08-22] MEDS: *HR* Acetaminophen w/Cod 300-30 mg 1 TAB TABLET PO PRN (22:19)
[2019-08-23 03:28] LABS: INR 2.6; Prothrombin Time 29.5 Seconds (9.4-12.1)
[2019-08-23] MEDS: Ondansetron 4 MG/2 ML VIAL IVP PRN ×2 (03:46→16:07)
[2019-08-23] MEDS: Sennosides/Docusate Sodium TABLET PO SCH ×2 (09:01→22:07)
[2019-08-23] MEDS: polyethylene glycoL 3350 17 GM POWD.PACK PO SCH (09:01)
[2019-08-23] MEDS: Promethazine 12.5 MG in 0.9 % Sodium Chloride 50 ML IVPB PRN ×2 (10:10→22:38)
[2019-08-23] MEDS: Budesonide/Formoterol 160/4.5 1 PUFF INH IH SCH ×2 (10:25→20:31)
[2019-08-23 10:30] LABS: Basophils % 0.4 %; Eosinophils % 0.1 %; Hematocrit 32.1 % (37.5-50.1); Hemoglobin 10.4 g/dL (12.9-16.9); Immature Granulocytes % 0.6 % (0-4); Lymphocytes # 0.4 K/mcL (0.6-4.6); Lymphocytes % 4.3 %; Mean Corpuscular HGB Conc 32.4 g/dL (31.6-35.5); Mean Corpuscular Hemoglobin 28.8 pg (28.0-33.3); Mean Corpuscular Volume 88.9 fL (83.0-100.0); Mean Platelet Volume 9.2 fL (9.4-12.4); Monocytes # 0.4 K/mcL (0.0-1.3); Monocytes % 4.2 %; Neutrophils # 8.8 K/mcL (1.6-8.9); Platelet Count 520 K/mcL (140-400); Red Blood Count 3.61 M/mcL (4.19-5.50); Red Cell Distribution Width 13.9 % (11.5-14.5); Segmented Neutrophils % 90.4 %; White Blood Count 9.8 K/mcL (4.3-11.1)
[2019-08-23 10:54] LABS: BUN/Creatinine Ratio 31 (6-26); Blood Urea Nitrogen 36 mg/dL (6-20); Calcium 8.1 mg/dL (8.6-10.3); Carbon Dioxide 21 mEq/L (23-29); Chloride 104 mEq/L (98-107); Glucose 127 mg/dL (70-105); Osmolality,Calculated 286 (280-300); Potassium 4.9 mEq/L (3.5-5.1); Sodium 133 mEq/L (136-145); eGFR For African Americans > 60 (> 60); eGFR For Non-African Americans > 60 (> 60)
[2019-08-23] MEDS: Pantoprazole 40 MG VIAL IVP SCH (12:49)
[2019-08-23] MEDS ORDERED: *HR* Warfarin 5 MG TABLET PO ONE (18:00)
[2019-08-23 18:46] LABS: Hematocrit 33.8 % (37.5-50.1)
[2019-08-24] MEDS: Ondansetron 4 MG/2 ML VIAL IVP PRN ×2 (03:03→14:38)
[2019-08-24 03:52] LABS: INR 3.8; Prothrombin Time 43.2 Seconds (9.4-12.1)
[2019-08-24 03:59] LABS: Basophils # 0.1 K/mcL (0.0-0.2); Basophils % 0.4 %; Eosinophils % 0.2 %; Hematocrit 33.9 % (37.5-50.1); Hemoglobin 10.9 g/dL (12.9-16.9); Immature Granulocytes % 0.8 % (0-4); Lymphocytes # 0.6 K/mcL (0.6-4.6); Lymphocytes % 5.3 %; Mean Corpuscular HGB Conc 32.2 g/dL (31.6-35.5); Mean Corpuscular Hemoglobin 28.5 pg (28.0-33.3); Mean Corpuscular Volume 88.5 fL (83.0-100.0); Mean Platelet Volume 9.5 fL (9.4-12.4); Monocytes # 0.7 K/mcL (0.0-1.3); Neutrophils # 10.2 K/mcL (1.6-8.9); Platelet Count 592 K/mcL (140-400); Red Blood Count 3.83 M/mcL (4.19-5.50); Segmented Neutrophils % 87.3 %; White Blood Count 11.7 K/mcL (4.3-11.1)
[2019-08-24 04:19] LABS: Albumin 2.4 g/dL (3.5-5.7); Albumin/Globulin Ratio 0.8 (1.1-2.2); Bilirubin,Direct 0.2 mg/dL (0.0-0.2); Bilirubin,Indirect 0.1 mg/dL (0.0-1.0); Bilirubin,Total 0.3 mg/dL (0.3-1.0); Calcium 8.2 mg/dL (8.6-10.3); Globulin 3.1 g/dL (2.4-3.5); Total Protein 5.5 g/dL (6.4-8.9)
[2019-08-24] MEDS ORDERED: Aminoglycoside Consult 1 EACH MC ONE (08:00)
[2019-08-24] MEDS: Sennosides/Docusate Sodium TABLET PO SCH (08:34)
[2019-08-24] MEDS: polyethylene glycoL 3350 17 GM POWD.PACK PO SCH (08:34)
[2019-08-24] MEDS: Promethazine 12.5 MG in 0.9 % Sodium Chloride 50 ML IVPB PRN ×2 (08:39→22:31)
[2019-08-24] MEDS: Pantoprazole 40 MG VIAL IVP SCH (08:39)
[2019-08-24] MEDS: 0.9 % Sodium Chloride 1,000 ML IVC SCH ×2 (10:29→18:30)
[2019-08-24] MEDS: Budesonide/Formoterol 160/4.5 1 PUFF INH IH SCH ×2 (11:00→19:43)
[2019-08-24 17:11] LABS: Uric Acid 6.1 mg/dL (2.3-7.6)
[2019-08-24 20:18] LABS: Bilirubin,Urine Small (Negative); Blood,Urine Moderate (Negative); Clarity,Urine Cloudy (Clear); Color,Urine Yellow (Yellow); Glucose,Urine (UA) Normal (Normal); Ketones,Urine Negative (Negative); Leukocyte Esterase,Urine Negative (Negative); Nitrite,Urine Negative (Negative); Protein,Urine >=300 mg/dL (Neg-Trace); Specific Gravity,Urine 1.024 (1.010-1.025); Urobilinogen,Urine Normal (Normal)
[2019-08-24 20:37] LABS: Hyaline Casts,Urine Few per lpf (None-Few); Squamous Epithelial Cell,Urine Few per lpf (None-Few)
[2019-08-24 20:38] LABS: Bacteria,Urine Few per hpf (None-Few); RBC,Urine 0-3 per hpf (0-3)
[2019-08-25] MEDS: Sennosides/Docusate Sodium TABLET PO SCH ×3 (00:08→19:55)
[2019-08-25] MEDS: 0.9 % Sodium Chloride 1,000 ML IVC SCH ×3 (02:31→19:55)
[2019-08-25] MEDS: Promethazine 12.5 MG in 0.9 % Sodium Chloride 50 ML IVPB PRN ×3 (04:02→23:16)
[2019-08-25 06:19] LABS: Basophils # 0.1 K/mcL (0.0-0.2); Basophils % 0.5 %; Eosinophils # 0.1 K/mcL (0.0-0.6); Eosinophils % 0.5 %; Hematocrit 31.6 % (37.5-50.1); Hemoglobin 10.3 g/dL (12.9-16.9); Immature Granulocytes % 0.6 % (0-4); Lymphocytes # 0.7 K/mcL (0.6-4.6); Lymphocytes % 5.6 %; Mean Corpuscular HGB Conc 32.6 g/dL (31.6-35.5); Mean Corpuscular Hemoglobin 28.7 pg (28.0-33.3); Mean Platelet Volume 9.1 fL (9.4-12.4); Monocytes # 0.9 K/mcL (0.0-1.3); Monocytes % 6.5 %; Neutrophils # 11.5 K/mcL (1.6-8.9); Platelet Count 522 K/mcL (140-400); Red Blood Count 3.59 M/mcL (4.19-5.50); Segmented Neutrophils % 86.3 %; White Blood Count 13.3 K/mcL (4.3-11.1)
[2019-08-25 06:38] LABS: Calcium 7.6 mg/dL (8.6-10.3); Potassium 4.9 mEq/L (3.5-5.1)
[2019-08-25 07:20] LABS: INR 6.6; Prothrombin Time 74.7 Seconds (9.4-12.1)
[2019-08-25] MEDS ORDERED: *HR* Phytonadione 5 MG TABLET PO ONE ×2 (08:12→18:03)
[2019-08-25] MEDS: Pantoprazole 40 MG VIAL IVP SCH (08:21)
[2019-08-25] MEDS: polyethylene glycoL 3350 17 GM POWD.PACK PO SCH (08:21)
[2019-08-25 10:18] LABS: Complement C3 133 mg/dL (87-200)
[2019-08-25] MEDS: Budesonide/Formoterol 160/4.5 1 PUFF INH IH SCH ×2 (10:34→20:12)
[2019-08-25] MEDS: DAPTOmycin 500 MG in 0.9 % Sodium Chloride 100 ML IVPB SCH (11:32)
[2019-08-25] MEDS: Ondansetron 4 MG/2 ML VIAL IVP PRN (11:34)
[2019-08-25] MEDS ORDERED: polyethylene glycoL 3350 17 GM POWD.PACK PO ONE (15:26)
[2019-08-25 17:19] LABS: Bilirubin,Urine Negative (Negative); Blood,Urine Large (Negative); Clarity,Urine Clear (Clear); Color,Urine Yellow (Yellow); Glucose,Urine (UA) Normal (Normal); Ketones,Urine Negative (Negative); Leukocyte Esterase,Urine Negative (Negative); Nitrite,Urine Negative (Negative); PH,Urine 5.5 pH Units (5.0-8.0); Protein,Urine >=300 mg/dL (Neg-Trace); Specific Gravity,Urine 1.022 (1.010-1.025); Urobilinogen,Urine Normal (Normal)
[2019-08-25 17:21] LABS: Bacteria,Urine None Seen per hpf (None-Few); RBC,Urine 15-30 per hpf (0-3); Squamous Epithelial Cell,Urine Many per lpf (None-Few)
[2019-08-25] MEDS: Doxycycline 100 MG in 0.9 % Sodium Chloride Mini Bag 100 ML IVPB SCH (17:23)
[2019-08-25 17:27] LABS: Creatinine,Urine 31 mg/dL; Sodium, Urine < 10.0 mEq/L
[2019-08-25 17:57] LABS: INR 7.4; Prothrombin Time 84.7 Seconds (9.4-12.1)
[2019-08-26] MEDS: Ondansetron 4 MG/2 ML VIAL IVP PRN (03:35)
[2019-08-26 03:51] LABS: Basophils # 0.1 K/mcL (0.0-0.2); Basophils % 0.5 %; Eosinophils # 0.1 K/mcL (0.0-0.6); Eosinophils % 0.3 %; Hematocrit 29.4 % (37.5-50.1); Hemoglobin 9.6 g/dL (12.9-16.9); Lymphocytes # 0.7 K/mcL (0.6-4.6); Lymphocytes % 4.4 %; Mean Corpuscular HGB Conc 32.7 g/dL (31.6-35.5); Mean Corpuscular Hemoglobin 28.6 pg (28.0-33.3); Mean Corpuscular Volume 87.5 fL (83.0-100.0); Mean Platelet Volume 9.1 fL (9.4-12.4); Monocytes % 6.4 %; Neutrophils # 13.2 K/mcL (1.6-8.9); Platelet Count 458 K/mcL (140-400); Red Blood Count 3.36 M/mcL (4.19-5.50); Segmented Neutrophils % 87.4 %
[2019-08-26 03:55] LABS: Prothrombin Time 79.7 Seconds (9.4-12.1)
[2019-08-26 04:08] LABS: Calcium 7.5 mg/dL (8.6-10.3); Potassium 4.7 mEq/L (3.5-5.1)
[2019-08-26] MEDS: Doxycycline 100 MG in 0.9 % Sodium Chloride Mini Bag 100 ML IVPB SCH (05:57)
[2019-08-26] MEDS: Budesonide/Formoterol 160/4.5 1 PUFF INH IH SCH ×2 (08:22→20:32)
[2019-08-26] MEDS: Sennosides/Docusate Sodium TABLET PO SCH ×2 (09:02→20:12)
[2019-08-26] MEDS: 0.9 % Sodium Chloride 1,000 ML IVC SCH ×2 (09:02→17:08)
[2019-08-26] MEDS: Pantoprazole 40 MG VIAL IVP SCH (09:03)
[2019-08-26] MEDS: polyethylene glycoL 3350 17 GM POWD.PACK PO SCH (09:03)
[2019-08-26 09:40] LABS: INR 5.8; Prothrombin Time 65.5 Seconds (9.4-12.1)
[2019-08-26 11:20] LABS: Albumin 2.1 g/dL (3.5-5.7); Albumin/Globulin Ratio 0.9 (1.1-2.2); Bilirubin,Direct 0.1 mg/dL (0.0-0.2); Bilirubin,Indirect 0.3 mg/dL (0.0-1.0); Bilirubin,Total 0.4 mg/dL (0.3-1.0); Globulin 2.3 g/dL (2.4-3.5); Total Protein 4.4 g/dL (6.4-8.9)
[2019-08-26] MEDS: DAPTOmycin 500 MG in 0.9 % Sodium Chloride 100 ML IVPB SCH (11:36)
[2019-08-26] MEDS: TRIMETH IVPB SCH ×2 (16:18→23:52)
[2019-08-26] MEDS: WATER IVPB SCH ×2 (16:18→23:52)
[2019-08-26] MEDS: D5 IVPB SCH ×2 (16:18→23:52)
[2019-08-26] MEDS: SULFAMETHOXAZOLE IVPB SCH ×2 (16:18→23:52)
[2019-08-26] MEDS ORDERED: Famotidine 20 MG/2 ML VIAL IVP ONE (22:04)
[2019-08-26 22:12] LABS: Creatinine,Urine 58 mg/dL; Microalbumin,Urine > 1350 mg/L; Protein/Creatinine Ratio,Urine 5.09 mg/mg (0.00-0.20)
[2019-08-26] MEDS ORDERED: *HR* HYDROmorphone (PF) 1 MG/ML SYRINGE IVP ONE (23:33)
[2019-08-27] MEDS: Calcium Gluconate 1gm/50mL 1 GM/50 ML BAG IVPB SCH ×2 (00:53→01:30)
[2019-08-27] MEDS: 0.9 % Sodium Chloride 1,000 ML IVC SCH ×4 (01:30→22:08)
[2019-08-27] MEDS ORDERED: polyethylene glycoL 3350 17 GM POWD.PACK PO PRN (03:09)
[2019-08-27] MEDS ORDERED: *HR* HYDROmorphone (PF) 1 MG/ML SYRINGE IVP PRN (04:00)
[2019-08-27 04:15] LABS: Hematocrit 27.3 % (37.5-50.1); Mean Corpuscular Hemoglobin 28.9 pg (28.0-33.3); Mean Corpuscular Volume 87.8 fL (83.0-100.0); Platelet Count 450 K/mcL (140-400); Red Blood Count 3.11 M/mcL (4.19-5.50); Red Cell Distribution Width 14.2 % (11.5-14.5); White Blood Count 14.3 K/mcL (4.3-11.1)
[2019-08-27 04:19] LABS: INR 1.8; Prothrombin Time 20.2 Seconds (9.4-12.1)
[2019-08-27 04:36] LABS: Calcium 7.4 mg/dL (8.6-10.3); Potassium 4.4 mEq/L (3.5-5.1)
[2019-08-27 04:47] LABS: INR 1.7; Prothrombin Time 19.2 Seconds (9.4-12.1)
[2019-08-27] MEDS ORDERED: Famotidine 20 MG/2 ML VIAL IVP SCH ×2 (06:00→10:30)
[2019-08-27] MEDS: Sennosides/Docusate Sodium TABLET PO SCH ×2 (08:19→20:31)
[2019-08-27] MEDS: SULFAMETHOXAZOLE IVPB SCH (08:20)
[2019-08-27] MEDS: WATER IVPB SCH (08:20)
[2019-08-27] MEDS: D5 IVPB SCH (08:20)
[2019-08-27] MEDS: TRIMETH IVPB SCH (08:20)
[2019-08-27] MEDS ORDERED: Pantoprazole 40 MG VIAL IVP SCH (09:00)
[2019-08-27 10:55] LABS: CK Total (Ck Isoenzymes) 15 U/L (20-200)
[2019-08-27] MEDS: Budesonide/Formoterol 160/4.5 1 PUFF INH IH SCH ×2 (11:05→20:54)
[2019-08-27] MEDS: Ceftaroline Fosamil Acetate 400 MG in 0.9 % Sodium Chloride 50 ML IVPB SCH (12:54)
[2019-08-27] MEDS ORDERED: *HR* Enoxaparin 100 MG/ML SYRINGE SQ STA (16:03)
[2019-08-27] MEDS ORDERED: Metoclopramide 10 MG/2 ML VIAL IVP ONE (20:23)
[2019-08-27 20:31] LABS: Hematocrit 28.1 % (37.5-50.1); Mean Corpuscular Hemoglobin 28.5 pg (28.0-33.3); Mean Corpuscular Volume 88.9 fL (83.0-100.0); Platelet Count 512 K/mcL (140-400); Red Blood Count 3.16 M/mcL (4.19-5.50); Red Cell Distribution Width 14.3 % (11.5-14.5); White Blood Count 16.1 K/mcL (4.3-11.1)
[2019-08-27 20:35] LABS: INR 1.4; Prothrombin Time 15.8 Seconds (9.4-12.1)
[2019-08-27 20:38] LABS: Activated Partial Thrombo Time 37.9 Seconds (26.0-36.0)
[2019-08-27] MEDS ORDERED: *HR* Heparin 5,000 UNIT/ML VIAL IVP PRN ×2 (21:14)
[2019-08-27] MEDS ORDERED: *HR* Heparin 5,000 UNIT/ML VIAL IVP ONE (21:14)
[2019-08-27] MEDS ORDERED: Heparin 25,000 UNIT/250 ML D5W 25,000 UNIT/250 ML IV.SOLN IVC SCH (21:15)
[2019-08-27] MEDS ORDERED: Milk and Molasses Enema 200 ML RC ONE (22:58)
[2019-08-28] MEDS: Ceftaroline Fosamil Acetate 400 MG in 0.9 % Sodium Chloride 50 ML IVPB SCH ×3 (00:48→23:28)
[2019-08-28 04:44] LABS: Basophils # 0.1 K/mcL (0.0-0.2); Basophils % 0.7 %; Eosinophils # 0.2 K/mcL (0.0-0.6); Eosinophils % 1.5 %; Hematocrit 24.4 % (37.5-50.1); Hemoglobin 7.9 g/dL (12.9-16.9); Immature Granulocytes % 0.8 % (0-4); Lymphocytes # 0.7 K/mcL (0.6-4.6); Lymphocytes % 6.1 %; Mean Corpuscular HGB Conc 32.4 g/dL (31.6-35.5); Mean Corpuscular Hemoglobin 28.6 pg (28.0-33.3); Mean Corpuscular Volume 88.4 fL (83.0-100.0); Mean Platelet Volume 9.2 fL (9.4-12.4); Monocytes # 0.7 K/mcL (0.0-1.3); Neutrophils # 10.3 K/mcL (1.6-8.9); Platelet Count 389 K/mcL (140-400); Red Blood Count 2.76 M/mcL (4.19-5.50); Red Cell Distribution Width 14.3 % (11.5-14.5); Segmented Neutrophils % 84.9 %; White Blood Count 12.1 K/mcL (4.3-11.1)
[2019-08-28 05:01] LABS: Calcium 7.3 mg/dL (8.6-10.3); Potassium 4.7 mEq/L (3.5-5.1)
[2019-08-28 05:10] LABS: INR 1.3; Prothrombin Time 14.8 Seconds (9.4-12.1)
[2019-08-28 05:12] LABS: Activated Partial Thrombo Time 35.7 Seconds (26.0-36.0)
[2019-08-28] MEDS ORDERED: Famotidine 20 MG/2 ML VIAL IVP SCH ×3 (05:22→20:04)
[2019-08-28] MEDS: Calcium Gluconate 1gm/50mL 1 GM/50 ML BAG IVPB SCH ×2 (06:05→08:16)
[2019-08-28] MEDS: Pantoprazole 40 MG VIAL IVP SCH ×2 (06:05→18:54)
[2019-08-28] MEDS: 0.9 % Sodium Chloride 1,000 ML IVC SCH ×3 (08:15→20:20)
[2019-08-28] MEDS: Sennosides/Docusate Sodium TABLET PO SCH ×2 (08:17→20:19)
[2019-08-28] MEDS: Budesonide/Formoterol 160/4.5 1 PUFF INH IH SCH ×2 (08:44→20:29)
[2019-08-28] MEDS ORDERED: Lidocaine -MPF 2% 2 ML VIAL ONE (10:50)
[2019-08-28] MEDS ORDERED: *HR* Propofol 200 MG/20 ML VIAL IVP ONE (10:52)
[2019-08-28] MEDS ORDERED: *HR* Heparin 5,000 UNIT/ML VIAL IVP ONE (13:54)
[2019-08-28] MEDS ORDERED: *HR* Heparin 5,000 UNIT/ML VIAL IVP PRN ×2 (13:54)
[2019-08-28 14:18] LABS: Hematocrit 25.2 % (37.5-50.1); Hemoglobin 8.1 g/dL (12.9-16.9); Mean Corpuscular HGB Conc 32.1 g/dL (31.6-35.5); Mean Corpuscular Hemoglobin 28.7 pg (28.0-33.3); Mean Corpuscular Volume 89.4 fL (83.0-100.0); Mean Platelet Volume 9.2 fL (9.4-12.4); Platelet Count 410 K/mcL (140-400); Red Blood Count 2.82 M/mcL (4.19-5.50); Red Cell Distribution Width 14.5 % (11.5-14.5); White Blood Count 11.4 K/mcL (4.3-11.1)
[2019-08-28] MEDS: Heparin 25,000 UNIT/250 ML D5W 25,000 UNIT/250 ML IV.SOLN IVC SCH (14:56)
[2019-08-28] MEDS: Famotidine 20 MG/2 ML VIAL IVP SCH (16:36)
[2019-08-28] MEDS ORDERED: Warfarin perPT PO PRN (18:00)
[2019-08-28] MEDS ORDERED: *HR* Warfarin 5 MG TABLET PO ONE (18:00)
[2019-08-28 19:15] LABS: Hematocrit 25.4 % (37.5-50.1); Hemoglobin 8.1 g/dL (12.9-16.9)
[2019-08-29 00:24] LABS: Hematocrit 23.4 % (37.5-50.1); Hemoglobin 7.4 g/dL (12.9-16.9)
[2019-08-29] MEDS: Pantoprazole 40 MG in 0.9 % Sodium Chloride Mini Bag 100 ML IVC SCH ×4 (03:16→23:35)
[2019-08-29 03:35] LABS: Basophils # 0.1 K/mcL (0.0-0.2); Basophils % 0.7 %; Eosinophils # 0.4 K/mcL (0.0-0.6); Eosinophils % 3.6 %; Hematocrit 22.6 % (37.5-50.1); Hemoglobin 7.2 g/dL (12.9-16.9); Immature Granulocytes % 0.8 % (0-4); Lymphocytes # 0.6 K/mcL (0.6-4.6); Lymphocytes % 6.1 %; Mean Corpuscular HGB Conc 31.9 g/dL (31.6-35.5); Mean Corpuscular Hemoglobin 28.5 pg (28.0-33.3); Mean Corpuscular Volume 89.3 fL (83.0-100.0); Mean Platelet Volume 9.3 fL (9.4-12.4); Monocytes # 0.7 K/mcL (0.0-1.3); Monocytes % 6.7 %; Neutrophils # 8.4 K/mcL (1.6-8.9); Platelet Count 398 K/mcL (140-400); Red Blood Count 2.53 M/mcL (4.19-5.50); Red Cell Distribution Width 14.6 % (11.5-14.5); Segmented Neutrophils % 82.1 %; White Blood Count 10.2 K/mcL (4.3-11.1)
[2019-08-29 03:54] LABS: Calcium 7.3 mg/dL (8.6-10.3); Potassium 4.7 mEq/L (3.5-5.1)
[2019-08-29] MEDS: Famotidine 20 MG/2 ML VIAL IVP SCH ×2 (04:53→17:50)
[2019-08-29 05:22] LABS: Heparin anti-factor XA UFH 0.29 IU/mL (0.30-0.70)
[2019-08-29 05:23] LABS: INR 1.3; Prothrombin Time 14.4 Seconds (9.4-12.1)
[2019-08-29 07:14] LABS: Hematocrit 22.2 % (37.5-50.1)
[2019-08-29] MEDS: Budesonide/Formoterol 160/4.5 1 PUFF INH IH SCH ×2 (08:03→21:10)
[2019-08-29] MEDS: Sucralfate 1 GM TABLET PO SCH ×4 (09:03→21:03)
[2019-08-29] MEDS: Sennosides/Docusate Sodium TABLET PO SCH ×2 (09:03→21:00)
[2019-08-29] MEDS: 0.9 % Sodium Chloride 1,000 ML IVC SCH ×2 (09:05→17:59)
[2019-08-29 09:21] LABS: ANA IgG by ELISA NONE DETECTED (None Detected)
[2019-08-29] MEDS: Ceftaroline Fosamil Acetate 400 MG in 0.9 % Sodium Chloride 50 ML IVPB SCH ×2 (10:57→23:35)
[2019-08-29] MEDS: Apixaban 5 MG TABLET PO SCH ×2 (11:16→21:03)
[2019-08-29] MEDS: Heparin 25,000 UNIT/250 ML D5W 25,000 UNIT/250 ML IV.SOLN IVC SCH (11:28)
[2019-08-29 11:33] LABS: Hematocrit 21.8 % (37.5-50.1)
[2019-08-29] MEDS ORDERED: Iron Sucrose Complex 400 MG in 0.9 % Sodium Chloride 250 ML IVPB ONE (14:32)
[2019-08-29 20:37] LABS: Hematocrit 21.4 % (37.5-50.1); Hemoglobin 6.9 g/dL (12.9-16.9)
[2019-08-30 02:59] LABS: Basophils # 0.1 K/mcL (0.0-0.2); Basophils % 0.9 %; Eosinophils # 0.4 K/mcL (0.0-0.6); Eosinophils % 4.7 %; Hematocrit 22.2 % (37.5-50.1); Immature Granulocytes % 0.9 % (0-4); Lymphocytes # 0.6 K/mcL (0.6-4.6); Lymphocytes % 7.4 %; Mean Corpuscular HGB Conc 31.5 g/dL (31.6-35.5); Mean Corpuscular Hemoglobin 28.7 pg (28.0-33.3); Mean Platelet Volume 9.3 fL (9.4-12.4); Monocytes # 0.7 K/mcL (0.0-1.3); Monocytes % 8.8 %; Neutrophils # 5.9 K/mcL (1.6-8.9); Platelet Count 359 K/mcL (140-400); Red Blood Count 2.44 M/mcL (4.19-5.50); Red Cell Distribution Width 14.8 % (11.5-14.5); Segmented Neutrophils % 77.3 %; White Blood Count 7.7 K/mcL (4.3-11.1)
[2019-08-30 03:18] LABS: Calcium 7.4 mg/dL (8.6-10.3); Potassium 4.7 mEq/L (3.5-5.1)
[2019-08-30] MEDS: Pantoprazole 40 MG in 0.9 % Sodium Chloride Mini Bag 100 ML IVC SCH ×3 (05:21→10:36)
[2019-08-30] MEDS: Famotidine 20 MG/2 ML VIAL IVP SCH ×2 (05:21→17:45)
[2019-08-30] MEDS: Budesonide/Formoterol 160/4.5 1 PUFF INH IH SCH ×2 (07:57→20:33)
[2019-08-30] MEDS: Apixaban 5 MG TABLET PO SCH ×2 (08:40→22:00)
[2019-08-30] MEDS: Sucralfate 1 GM TABLET PO SCH ×4 (08:40→22:00)
[2019-08-30] MEDS: Sennosides/Docusate Sodium TABLET PO SCH ×2 (08:40→21:49)
[2019-08-30] MEDS ORDERED: Sodium Bicarbonate 75 MEQ in 0.45 % Sodium Chloride 1,000 ML IVC SCH ×2 (10:00→11:45)
[2019-08-30] MEDS: Ceftaroline Fosamil Acetate 400 MG in 0.9 % Sodium Chloride 50 ML IVPB SCH (11:34)
[2019-08-30] MEDS: Sodium Bicarbonate 75 MEQ in 0.45 % Sodium Chloride 1,000 ML IVC SCH ×2 (12:07→22:02)
[2019-08-30] MEDS: Ondansetron 4 MG/2 ML VIAL IVP PRN (14:39)
[2019-08-30] MEDS: Iron Sucrose Complex 250 MG in 0.9 % Sodium Chloride 250 ML IVPB SCH (15:34)
[2019-08-30] MEDS: Pantoprazole 40 MG VIAL IVP SCH (17:45)
[2019-08-31] MEDS: Ceftaroline Fosamil Acetate 400 MG in 0.9 % Sodium Chloride 50 ML IVPB SCH ×3 (00:10→22:38)
[2019-08-31 03:46] LABS: Basophils # 0.1 K/mcL (0.0-0.2); Basophils % 0.6 %; Eosinophils # 0.2 K/mcL (0.0-0.6); Hematocrit 24.2 % (37.5-50.1); Hemoglobin 7.6 g/dL (12.9-16.9); Immature Granulocytes % 1.4 % (0-4); Lymphocytes # 0.5 K/mcL (0.6-4.6); Lymphocytes % 5.1 %; Mean Corpuscular HGB Conc 31.4 g/dL (31.6-35.5); Mean Corpuscular Hemoglobin 28.5 pg (28.0-33.3); Mean Corpuscular Volume 90.6 fL (83.0-100.0); Mean Platelet Volume 9.5 fL (9.4-12.4); Monocytes # 0.9 K/mcL (0.0-1.3); Monocytes % 8.1 %; Neutrophils # 8.7 K/mcL (1.6-8.9); Platelet Count 401 K/mcL (140-400); Red Blood Count 2.67 M/mcL (4.19-5.50); Red Cell Distribution Width 14.8 % (11.5-14.5); Segmented Neutrophils % 82.8 %; White Blood Count 10.6 K/mcL (4.3-11.1)
[2019-08-31 04:05] LABS: Calcium 7.5 mg/dL (8.6-10.3); Potassium 4.8 mEq/L (3.5-5.1)
[2019-08-31] MEDS: Famotidine 20 MG/2 ML VIAL IVP SCH ×2 (05:36→16:58)
[2019-08-31] MEDS: Pantoprazole 40 MG VIAL IVP SCH ×2 (05:36→16:58)
[2019-08-31] MEDS: Budesonide/Formoterol 160/4.5 1 PUFF INH IH SCH ×2 (07:31→19:50)
[2019-08-31] MEDS: Ondansetron 4 MG/2 ML VIAL IVP PRN ×2 (09:15→16:57)
[2019-08-31] MEDS: Apixaban 5 MG TABLET PO SCH (09:15)
[2019-08-31] MEDS: Sucralfate 1 GM TABLET PO SCH ×4 (09:15→21:04)
[2019-08-31] MEDS: Sennosides/Docusate Sodium TABLET PO SCH ×2 (09:15→21:03)
[2019-08-31] MEDS: Iron Sucrose Complex 250 MG in 0.9 % Sodium Chloride 250 ML IVPB SCH (09:29)
[2019-08-31] MEDS ORDERED: Sodium Bicarbonate 150 MEQ in D5% in Water 1,000 ML IVC SCH (15:15)
[2019-08-31] MEDS: Sodium Bicarbonate 150 MEQ in D5% in Water 1,000 ML IVC SCH (16:16)
[2019-08-31] MEDS ORDERED: SODIUM CHLORIDE/NAHCO3/KCL/PEG 4,000 ML SOLN.RECON PO ONE (17:00)
[2019-08-31] MEDS ORDERED: Milk and Molasses Enema 200 ML RC ONE (20:47)
[2019-08-31] MEDS: *HR* Promethazine 25 MG/ML VIAL IVP PRN (21:04)
[2019-08-31 22:03] LABS: Hematocrit 24.1 % (37.5-50.1); Hemoglobin 7.6 g/dL (12.9-16.9)
[2019-09-01 04:43] LABS: Calcium 7.3 mg/dL (8.6-10.3); Potassium 4.2 mEq/L (3.5-5.1)
[2019-09-01 04:44] LABS: Basophils # 0.1 K/mcL (0.0-0.2); Basophils % 0.6 %; Eosinophils # 0.2 K/mcL (0.0-0.6); Hematocrit 23.3 % (37.5-50.1); Hemoglobin 7.5 g/dL (12.9-16.9); Immature Granulocytes % 1.4 % (0-4); Lymphocytes # 0.7 K/mcL (0.6-4.6); Lymphocytes % 6.1 %; Mean Corpuscular HGB Conc 32.2 g/dL (31.6-35.5); Mean Corpuscular Hemoglobin 28.5 pg (28.0-33.3); Mean Corpuscular Volume 88.6 fL (83.0-100.0); Mean Platelet Volume 9.6 fL (9.4-12.4); Monocytes # 0.9 K/mcL (0.0-1.3); Monocytes % 8.7 %; Neutrophils # 8.7 K/mcL (1.6-8.9); Platelet Count 401 K/mcL (140-400); Red Blood Count 2.63 M/mcL (4.19-5.50); Red Cell Distribution Width 15.1 % (11.5-14.5); Segmented Neutrophils % 81.2 %; White Blood Count 10.7 K/mcL (4.3-11.1)
[2019-09-01] MEDS: Pantoprazole 40 MG VIAL IVP SCH (04:54)
[2019-09-01] MEDS: Famotidine 20 MG/2 ML VIAL IVP SCH (04:54)
[2019-09-01] MEDS: *HR* Promethazine 25 MG/ML VIAL IVP PRN (06:41)
[2019-09-01] MEDS: Budesonide/Formoterol 160/4.5 1 PUFF INH IH SCH ×2 (08:01→21:38)
[2019-09-01] MEDS: Sennosides/Docusate Sodium TABLET PO SCH ×2 (08:32→21:51)
[2019-09-01] MEDS: Iron Sucrose Complex 250 MG in 0.9 % Sodium Chloride 250 ML IVPB SCH (08:32)
[2019-09-01] MEDS: Sucralfate 1 GM TABLET PO SCH ×4 (08:45→21:50)
[2019-09-01] MEDS ORDERED: Lidocaine -MPF 2% 2 ML VIAL ONE ×2 (10:18→10:19)
[2019-09-01] MEDS: Sodium Bicarbonate 150 MEQ in D5% in Water 1,000 ML IVC SCH (10:39)
[2019-09-01] MEDS: Ceftaroline Fosamil Acetate 400 MG in 0.9 % Sodium Chloride 50 ML IVPB SCH ×2 (10:40→23:27)
[2019-09-01] MEDS ORDERED: *HR* EPINEPHrine 1 MG/10 ML SYRINGE ONE (10:54)
[2019-09-01] MEDS ORDERED: 0.9 % Sodium Chloride 500 ML IVC SCH (11:15)
[2019-09-01] MEDS ORDERED: EPINEPHrine 1 MG/ML VIAL SQ ONE (12:08)
[2019-09-01 13:03] LABS: Hemoglobin 7.5 g/dL (12.9-16.9)
[2019-09-01] MEDS: Saline Nasal Spray 44 ML BOTTLE NS SCH ×3 (14:37→21:50)
[2019-09-01 17:36] LABS: Hematocrit 22.2 % (37.5-50.1); Hemoglobin 7.1 g/dL (12.9-16.9)
[2019-09-01] MEDS: Famotidine 20 MG TABLET PO SCH (21:50)
[2019-09-01] MEDS: Apixaban 5 MG TABLET PO SCH (21:50)
[2019-09-02] MEDS: Sodium Bicarbonate 150 MEQ in D5% in Water 1,000 ML IVC SCH (05:17)
[2019-09-02 05:38] LABS: Basophils # 0.1 K/mcL (0.0-0.2); Eosinophils # 0.2 K/mcL (0.0-0.6); Eosinophils % 2.7 %; Hematocrit 19.9 % (37.5-50.1); Hemoglobin 6.4 g/dL (12.9-16.9); Immature Granulocytes % 1.2 % (0-4); Lymphocytes # 0.7 K/mcL (0.6-4.6); Lymphocytes % 8.1 %; Mean Corpuscular HGB Conc 32.2 g/dL (31.6-35.5); Mean Corpuscular Hemoglobin 28.8 pg (28.0-33.3); Mean Corpuscular Volume 89.6 fL (83.0-100.0); Mean Platelet Volume 9.3 fL (9.4-12.4); Monocytes # 0.7 K/mcL (0.0-1.3); Monocytes % 7.7 %; Neutrophils # 7.1 K/mcL (1.6-8.9); Platelet Count 315 K/mcL (140-400); Red Blood Count 2.22 M/mcL (4.19-5.50); Red Cell Distribution Width 15.1 % (11.5-14.5); Segmented Neutrophils % 79.3 %
[2019-09-02 05:56] LABS: Calcium 7.1 mg/dL (8.6-10.3); Potassium 3.8 mEq/L (3.5-5.1)
[2019-09-02] MEDS: Budesonide/Formoterol 160/4.5 1 PUFF INH IH SCH ×2 (08:08→20:41)
[2019-09-02] MEDS: Famotidine 20 MG TABLET PO SCH ×2 (08:31→20:33)
[2019-09-02] MEDS: Apixaban 5 MG TABLET PO SCH ×2 (08:32→20:33)
[2019-09-02] MEDS: Sucralfate 1 GM TABLET PO SCH ×4 (08:32→23:11)
[2019-09-02] MEDS: Iron Sucrose Complex 250 MG in 0.9 % Sodium Chloride 250 ML IVPB SCH (08:32)
[2019-09-02 09:40] LABS: INR 2.3; Prothrombin Time 25.7 Seconds (9.4-12.1)
[2019-09-02] MEDS: Sennosides/Docusate Sodium TABLET PO SCH ×2 (10:59→20:33)
[2019-09-02] MEDS: Saline Nasal Spray 44 ML BOTTLE NS SCH ×4 (10:59→23:00)
[2019-09-02] MEDS: Ceftaroline Fosamil Acetate 400 MG in 0.9 % Sodium Chloride 50 ML IVPB SCH ×2 (11:04→23:10)
[2019-09-03] MEDS: Sodium Bicarbonate 150 MEQ in D5% in Water 1,000 ML IVC SCH ×2 (02:35→04:23)
[2019-09-03 04:09] LABS: Bilirubin,Urine Negative (Negative); Blood,Urine Large (Negative); Clarity,Urine Cloudy (Clear); Color,Urine Yellow (Yellow); Glucose,Urine (UA) Normal (Normal); Ketones,Urine Negative (Negative); Leukocyte Esterase,Urine Small (Negative); Nitrite,Urine Negative (Negative); Protein,Urine >=300 mg/dL (Neg-Trace); Specific Gravity,Urine 1.016 (1.010-1.025); Urobilinogen,Urine Normal (Normal)
[2019-09-03 04:12] LABS: Hyaline Casts,Urine Few per lpf (None-Few); RBC,Urine TNTC per hpf (0-3); Squamous Epithelial Cell,Urine Many per lpf (None-Few); WBC,Urine 30-50 per hpf (0-3)
[2019-09-03 04:28] LABS: Bacteria,Urine Few per hpf (None-Few); Yeast,Urine Few per hpf (None Seen)
[2019-09-03 04:59] LABS: Basophils # 0.1 K/mcL (0.0-0.2); Basophils % 0.7 %; Eosinophils # 0.3 K/mcL (0.0-0.6); Eosinophils % 3.4 %; Hemoglobin 6.5 g/dL (12.9-16.9); Immature Granulocytes % 0.9 % (0-4); Lymphocytes # 0.9 K/mcL (0.6-4.6); Lymphocytes % 11.1 %; Mean Corpuscular HGB Conc 32.5 g/dL (31.6-35.5); Mean Corpuscular Hemoglobin 29.3 pg (28.0-33.3); Mean Corpuscular Volume 90.1 fL (83.0-100.0); Mean Platelet Volume 9.6 fL (9.4-12.4); Monocytes # 0.6 K/mcL (0.0-1.3); Monocytes % 7.6 %; Neutrophils # 5.9 K/mcL (1.6-8.9); Platelet Count 306 K/mcL (140-400); Red Blood Count 2.22 M/mcL (4.19-5.50); Segmented Neutrophils % 76.3 %; White Blood Count 7.7 K/mcL (4.3-11.1)
[2019-09-03 05:11] LABS: Potassium 3.7 mEq/L (3.5-5.1)
[2019-09-03 05:38] LABS: Protein/Creatinine Ratio,Urine 3.89 mg/mg (0.00-0.20)
[2019-09-03] MEDS: Budesonide/Formoterol 160/4.5 1 PUFF INH IH SCH ×2 (08:04→20:02)
[2019-09-03] MEDS: Sucralfate 1 GM TABLET PO SCH ×4 (08:34→21:36)
[2019-09-03] MEDS: Famotidine 20 MG TABLET PO SCH ×2 (08:34→21:35)
[2019-09-03] MEDS: Sennosides/Docusate Sodium TABLET PO SCH ×2 (08:34→21:36)
[2019-09-03] MEDS: Apixaban 5 MG TABLET PO SCH (08:35)
[2019-09-03] MEDS: Saline Nasal Spray 44 ML BOTTLE NS SCH ×4 (08:36→21:36)
[2019-09-03] MEDS ORDERED: 0.9 % Sodium Chloride 250 ML ONE (09:54)
[2019-09-03] MEDS: Ceftaroline Fosamil Acetate 400 MG in 0.9 % Sodium Chloride 50 ML IVPB SCH (14:37)
[2019-09-03] MEDS: Ondansetron 4 MG/2 ML VIAL IVP PRN (14:42)
[2019-09-03 15:27] LABS: Hematocrit 26.2 % (37.5-50.1)
[2019-09-03 15:28] LABS: Hemoglobin 8.3 g/dL (12.9-16.9)
[2019-09-03 18:19] LABS: Albumin 2.2 g/dL (3.5-5.7); Albumin/Globulin Ratio 0.8 (1.1-2.2); Globulin 2.7 g/dL (2.4-3.5); Total Protein 4.9 g/dL (6.4-8.9)
[2019-09-04] MEDS ORDERED: Ceftaroline Fosamil Acetate 400 MG in 0.9 % Sodium Chloride 50 ML IVPB SCH (02:00)
[2019-09-04 03:53] LABS: Basophils # 0.1 K/mcL (0.0-0.2); Basophils % 0.8 %; Eosinophils # 0.2 K/mcL (0.0-0.6); Hematocrit 23.4 % (37.5-50.1); Hemoglobin 7.5 g/dL (12.9-16.9); Immature Granulocytes % 0.9 % (0-4); Lymphocytes # 0.9 K/mcL (0.6-4.6); Lymphocytes % 9.5 %; Mean Corpuscular HGB Conc 32.1 g/dL (31.6-35.5); Mean Corpuscular Hemoglobin 29.2 pg (28.0-33.3); Mean Corpuscular Volume 91.1 fL (83.0-100.0); Mean Platelet Volume 9.7 fL (9.4-12.4); Monocytes # 0.7 K/mcL (0.0-1.3); Monocytes % 7.4 %; Neutrophils # 7.1 K/mcL (1.6-8.9); Platelet Count 319 K/mcL (140-400); Red Blood Count 2.57 M/mcL (4.19-5.50); Red Cell Distribution Width 14.9 % (11.5-14.5); Segmented Neutrophils % 79.4 %; White Blood Count 8.9 K/mcL (4.3-11.1)
[2019-09-04 03:58] LABS: Potassium 3.8 mEq/L (3.5-5.1)
[2019-09-04] MEDS: Budesonide/Formoterol 160/4.5 1 PUFF INH IH SCH (07:53)
[2019-09-04] MEDS ORDERED: 0.9 % Sodium Chloride 500 ML ONE ×2 (08:17→08:54)
[2019-09-04] MEDS: Sucralfate 1 GM TABLET PO SCH ×2 (08:27→11:42)
[2019-09-04] MEDS: Famotidine 20 MG TABLET PO SCH (08:27)
[2019-09-04] MEDS: Sennosides/Docusate Sodium TABLET PO SCH (08:27)
[2019-09-04] MEDS ORDERED: Isovue-300 50ML VIAL IVP ONE (09:12)
[2019-09-04] MEDS: Saline Nasal Spray 44 ML BOTTLE NS SCH (09:58)
[2019-09-04 11:40] VITALS: BP 135/81
[2019-09-06 10:00] LABS: Serine Protease-3 Antibody 0 AU/mL (0-19)
[2019-09-07 06:53] LABS: GBM IgG Multiplex Bead Assay 0 AU/mL (0-19); Glomerular Basement Memb IgG NEGATIVE (Negative)
== END 2019-09-04 16:15 | disposition home or self-care (01) | DRG 853 ==
LOC: EMEROOARM 15:17 → 3BNU 15:17 → SUATTDRO 19:34 → 3BNU 20:36 → SUATTDRO 08-10 12:29 → 2NENU 08-13 10:49 → 3NENU 08-16 05:37 → 3ANU 08-21 16:53
PROVIDERS: ADMIT Internal Medicine; ATTEND Internal Medicine